=== PATIENT | female | born 1935 | race Caucasian/White ===

== ENCOUNTER 2021-01-20 08:56 | Emergency (ER) | payer BC, MEDICARE ==
[~2021-01-20] VITALS: Ht 167.6 cm; Wt 53.6 kg
[~2021-01-20 08:56] MED LIST: AMLO2.5T2 PO; ASPI-611 PO; CHOL2000 PO; Hydralazine Hcl PO; LISI40TA13 PO; LOP25T PO; PRAV10TA39 PO; VITA-336 PO; VITC500T PO
[2021-01-20] MEDS ORDERED: acetaminophen 325mg tablet PO ONE (11:15)
[2021-01-20 11:45] VITALS: BP 163/49
--- NOTE | 2021-01-20 11:50 | NUR ---
Pt given and understands d/c instruction. Ambulatory with assist.
== END 2021-01-20 11:59 | disposition home or self-care (01) ==
LOC: ER 08:57
DX: M25.551 Pain in right hip (principal); M25.552 Pain in left hip; R26.89 Other abnormalities of gait and mobility; E78.00 Pure hypercholesterolemia, unspecified; I10 Essential (primary) hypertension; Z98.890 Other specified postprocedural states; Z88.5 Allergy status to narcotic agent; Z88.8 Allergy status to other drugs, medicaments and biological substances; Z79.82 Long term (current) use of aspirin; Z79.899 Other long term (current) drug therapy
CPT/HCPCS: 72170; 99284

== ENCOUNTER 2022-07-15 11:00 | Emergency (ER) | payer BC ==
[~2022-07-15] VITALS: Ht 160 cm; Wt 45.0 kg
[2022-07-15 11:52] LABS: BASOPHILS # (AUTO) 0.1 X10'3 (0-0.2); BASOPHILS % (AUTO) 1.7 % (0-1); HEMATOCRIT 40.1 % (35.0-45.0); HEMOGLOBIN 13.8 g/dl (12.0-16.0); LYMPHOCYTES # (AUTO) 0.8 X10'3 (1.1-4.8); LYMPHOCYTES % (AUTO) 25.5 % (21-51); MEAN CORPUSCULAR HEMOGLOBIN 32.7 PG (27.0-31.0); MEAN CORPUSCULAR HGB CONC 34.4 g/dL (33.0-36.5); MEAN CORPUSCULAR VOLUME 95.2 FL (78-98); MEAN PLATELET VOLUME 6.8 FL (7.4-10.4); MONOCYTES # (AUTO) 0.3 X10'3 (0-0.9); MONOCYTES % (AUTO) 9.3 % (2-12); NEUTROPHILS # (AUTO) 1.9 X10'3 (1.8-7.7); NEUTROPHILS % (AUTO) 62.5 % (42-75); PLATELET COUNT 210 X10'3 (140-440); RED BLOOD COUNT 4.21 X10'6 (4.20-5.60); RED CELL DISTRIBUTION WIDTH 13.6 % (11.5-14.5); WHITE BLOOD COUNT 3.1 X10'3 (4.5-11.0)
[2022-07-15 12:14] LABS: ALANINE AMINOTRANSFERASE 32 U/L (12-78); ALBUMIN 3.1 G/DL (3.4-5.0); ALBUMIN/GLOBULIN RATIO 0.9 (1.1-1.5); ALKALINE PHOSPHATASE 91 IU/L (46-116); ANION GAP 9 (8-16); ASPARTATE AMINO TRANSFERASE 42 U/L (10-37); BLOOD UREA NITROGEN 10 MG/DL (7-18); BUN/CREATININE RATIO 19.2 (6.6-38.0); CALCIUM 8.8 MG/DL (8.5-10.1); CHLORIDE 109 MMOL/L (99-107); CREATININE 0.52 MG/DL (0.40-0.90); GLUCOSE 129 MG/DL (70-104); SODIUM 149 MMOL/L (135-145); TOTAL CARBON DIOXIDE 31.5 MMOL/L (24-32); TOTAL PROTEIN 6.4 G/DL (6.4-8.2); eGFR > 90 ML/MIN
[2022-07-15 12:18] LABS: POTASSIUM 2.7 MMOL/L (3.5-5.1)
[2022-07-15] MEDS ORDERED: traMADol 50MG tablet PO ONE (14:35)
[2022-07-15] MEDS ORDERED: POTASSIUM BICARB 20meq eff tab 20 MEQ TABLET.EFF PO STA (14:35)
[2022-07-15] MEDS ORDERED: TRAM50TA2 PO (15:14)
--- NOTE | 2022-07-15 16:01 | NUR ---
changed pt brief due to episode of incontinence at this time,
[2022-07-15 16:34] VITALS: BP 179/98
== END 2022-07-15 16:38 | disposition home or self-care (01) ==
LOC: ER 11:02
DX: R07.81 Pleurodynia (principal); I10 Essential (primary) hypertension; E78.00 Pure hypercholesterolemia, unspecified; Z88.5 Allergy status to narcotic agent; Z91.048 Other nonmedicinal substance allergy status; W19.XXXA Unspecified fall, initial encounter; Y93.89 Activity, other specified; Y92.89 Other specified places as the place of occurrence of the external cause; Y99.8 Other external cause status
CPT/HCPCS: 36415; 70450; 71045; 71100; 80053; 83880; 84484; 85025; 93005; 99285

== ENCOUNTER 2023-04-29 17:30 | Emergency (ER) | payer BC ==
[~2023-04-29] VITALS: Ht 165.1 cm; Wt 50.0 kg
[~2023-04-29 17:30] MED LIST changes: -AMLO2.5T2 PO; +AMLO5TAB16 PO; -ASPI-611 PO; +ATOR40TA72 PO; -CHOL2000 PO; -Hydralazine Hcl PO; +LACT-237 PO; -LOP25T PO; -PRAV10TA39 PO; +SPIR25TA PO; -VITA-336 PO; -VITC500T PO; +WARF2.5T82 PO; +potassium cl 10mEq ER tablet PO
[2023-04-29 19:49] LABS: BASOPHILS % (AUTO) 0.4 % (0-1); EOSINOPHILS # (AUTO) 0.7 X10'3 (0-0.9); EOSINOPHILS % (AUTO) 9.5 % (0-6); HEMATOCRIT 39.6 % (35.0-45.0); HEMOGLOBIN 13.2 g/dl (12.0-16.0); LYMPHOCYTES # (AUTO) 1.6 X10'3 (1.1-4.8); LYMPHOCYTES % (AUTO) 20.7 % (21-51); MEAN CORPUSCULAR HEMOGLOBIN 31.4 PG (27.0-31.0); MEAN CORPUSCULAR HGB CONC 33.5 g/dL (33.0-36.5); MEAN CORPUSCULAR VOLUME 93.8 FL (78-98); MEAN PLATELET VOLUME 8.1 FL (7.4-10.4); MONOCYTES # (AUTO) 0.8 X10'3 (0-0.9); MONOCYTES % (AUTO) 9.7 % (2-12); NEUTROPHILS # (AUTO) 4.6 X10'3 (1.8-7.7); NEUTROPHILS % (AUTO) 59.7 % (42-75); PLATELET COUNT 211 X10'3 (140-440); RED BLOOD COUNT 4.22 X10'6 (4.20-5.60); RED CELL DISTRIBUTION WIDTH 14.1 % (11.5-14.5); WHITE BLOOD COUNT 7.8 X10'3 (4.5-11.0)
[2023-04-29 20:03] LABS: ALANINE AMINOTRANSFERASE 15 U/L (12-78); ALBUMIN 2.9 G/DL (3.4-5.0); ALKALINE PHOSPHATASE 106 IU/L (46-116); ANION GAP 5 (8-16); ASPARTATE AMINO TRANSFERASE 21 U/L (10-37); BILIRUBIN,TOTAL 0.4 MG/DL (0.1-1.0); BLOOD UREA NITROGEN 23 MG/DL (7-18); BUN/CREATININE RATIO 30.3 (10.0-20.0); CALCIUM 8.2 MG/DL (8.5-10.1); CHLORIDE 107 MMOL/L (99-107); CREATININE 0.76 MG/DL (0.40-0.90); GLUCOSE 120 MG/DL (70-104); POTASSIUM 4.5 MMOL/L (3.5-5.1); SODIUM 141 MMOL/L (135-145); TOTAL CARBON DIOXIDE 28.7 MMOL/L (24-32); TOTAL PROTEIN 5.9 G/DL (6.4-8.2); eCRCL 43 ML/MIN; eGFR 72 ML/MIN
[2023-04-29] MEDS ORDERED: acetaminophen 325mg tablet PO ONE (20:20)
--- NOTE | 2023-04-29 21:30 | NUR ---
helped pt to and from restroom.
[2023-04-29] MEDS ORDERED: TETanus/Pertussis (Acell)/Diphther VAC/PF (Tdap-Adult) 0.5ml syringe IMVAC ONE (22:05)
--- NOTE | 2023-04-29 22:53 | NUR ---
pt refuses med, tetnus utd
--- NOTE | 2023-04-29 22:58 | NUR ---
report called to rachel woodruff , will update when pt leaves ER
--- NOTE | 2023-04-29 23:43 | NUR ---
tech helped pt to and from restroom.
--- NOTE | 2023-04-30 00:30 | NUR ---
ems at bedside for tx back to pt home facility.
[2023-04-30 00:31] VITALS: BP 118/78; PULSE 67; RESP 18; TEMP 98.6; O2SAT 98
== END 2023-04-30 00:40 ==
LOC: ER 17:31
DX: S01.91XA Laceration without foreign body of unspecified part of head, initial encounter (principal); E78.00 Pure hypercholesterolemia, unspecified; I10 Essential (primary) hypertension; Z87.891 Personal history of nicotine dependence; W19.XXXA Unspecified fall, initial encounter; Y93.89 Activity, other specified; Y92.89 Other specified places as the place of occurrence of the external cause; Y99.8 Other external cause status
CPT/HCPCS: 12002; 36415; 70450; 80053; 84484; 85025; 93005; 99284